=== PATIENT | male | born 1970 | race Asian ===

== ENCOUNTER 2021-04-23 18:43 | Emergency (ER) | payer OTHER | END 2021-04-23 23:23 | disposition home or self-care (01) | LOC: FER 18:43 | DX: S43.015A Anterior dislocation of left humerus, initial encounter (principal); I10 Essential (primary) hypertension; W11.XXXA Fall on and from ladder, initial encounter; Y92.009 Unspecified place in unspecified non-institutional (private) residence as the place of occurrence of the external cause ==

== ENCOUNTER → 2021-05-02 | Day surgery (SDC) | payer OTHER ==
[~2021-05-02] VITALS: Ht 180.3 cm; Wt 93.0 kg
[~2021-05-02] MED LIST: FLONASE ALLER15.8 ML
[2021-05-02 09:49] LABS: HCT 44.2 % (42.0-52.0); HGB 15.3 g/dl (13.2-18.0); MCH 31.5 pg (25.0-31.0); MCHC 34.6 g/dL (32.0-36.0); MCV 91.1 fL (78.0-100.0); MPV 9.6 fL (6.0-9.5); RBC 4.85 M/uL (4.70-6.00); RDW 11.8 % (11.5-14.0)
[2021-05-02 10:08] LABS: ALBUMIN 4.2 g/dL (3.4-5.0); BILIRUBIN - TOTAL 0.7 mg/dL (0.2-1.0); BUN/CREAT RATIO (CALC) 20.7 RATIO; CREATININE 0.92 mg/dL (0.67-1.17); GLOBULIN (CALCULATION) 3.6 g/dL; POTASSIUM 3.8 mmol/L (3.5-5.1); TOTAL PROTEIN 7.8 g/dL (6.4-8.2)
== END | disposition home or self-care (01) ==
LOC: FAS 09:12
PROVIDERS: Surgery
DX: Z12.11 Encounter for screening for malignant neoplasm of colon (principal); Z20.822 Contact with and (suspected) exposure to COVID-19
CPT/HCPCS: 36415; 80053; J1610; J2250; J2704; J7120